=== PATIENT | male | born 1960 | race Two or more races ===

== ENCOUNTER 2018-11-20 14:02 | Emergency (ER) | END 2018-11-20 16:05 | disposition home or self-care (01) | DX: S49.81XA Other specified injuries of right shoulder and upper arm, initial encounter (principal); M54.2 Cervicalgia; V43.52XA Car driver injured in collision with other type car in traffic accident, initial encounter; Y93.89 Activity, other specified; Y92.410 Unspecified street and highway as the place of occurrence of the external cause; Y99.8 Other external cause status ==